=== PATIENT | male | born 1960 | race Two or more races ===

== ENCOUNTER 2018-11-29 13:03 | Outpatient (CLI) | payer OTHER | END 2018-11-29 13:04 | disposition home or self-care (01) | LOC: SONOGRAMA 13:03 → MAMO-SONO 13:15 | DX: N49.2 Inflammatory disorders of scrotum (principal); N50.82 Scrotal pain ==

== ENCOUNTER 2019-10-02 11:09 | Emergency (ER) | payer OTHER ==
[~2019-10-02] VITALS: Ht 172.7 cm; Wt 76.2 kg
[2019-10-02] MEDS ORDERED: ASPIR 8181 MG (11:38)
[2019-10-02] MEDS ORDERED: TOPROL XL100 M1 (11:38)
[2019-10-02] MEDS ORDERED: BETIMOL5 ML (11:38)
== END 2019-10-02 14:02 | disposition home or self-care (01) ==
LOC: ER 11:09
DX: R07.89 Other chest pain (principal)

== ENCOUNTER 2020-10-30 06:22 | Emergency (ER) | payer OTHER ==
[~2020-10-30] VITALS: Ht 172.7 cm; Wt 73.5 kg
[~2020-10-30 06:22] MED LIST: ASPIR 8181 MG; BETIMOL5 ML; TOPROL XL100 M1
[2020-10-30] MEDS ORDERED: SIMVASTATIN5 MG (06:39)
[2020-10-30] MEDS ORDERED: COZAAR25 MG (06:39)
[2020-10-30] MEDS ORDERED: VITAMIN B-121000 MCG PO (08:47)
[2020-10-30] MEDS ORDERED: HORIZANT300 MG PO (08:47)
== END 2020-10-30 08:58 | disposition home or self-care (01) ==
LOC: ER 06:22
DX: G58.8 Other specified mononeuropathies (principal); M79.672 Pain in left foot; M79.671 Pain in right foot; R20.2 Paresthesia of skin

== ENCOUNTER 2025-03-28 14:08 | Outpatient (CLI) | payer OTHER ==
[~2025-03-28 14:08] MED LIST changes: +COZAAR25 MG; +HORIZANT300 MG PO; +SIMVASTATIN5 MG; +VITAMIN B-121000 MCG PO
== END 2025-03-28 14:11 | disposition home or self-care (01) ==
LOC: RAD 14:08
DX: J45.909 Unspecified asthma, uncomplicated (principal)